=== PATIENT | female | born 1985 | race Two or more races ===

== ENCOUNTER 2025-01-17 10:23 | Emergency (ER) | payer MEDICAID, SELFPAY ==
[2025-01-17 10:24] VITALS: BMI 37.1
[2025-01-17 10:56] VITALS: BP 126/90; PULSE 84; RESP 18; TEMP 37.1; O2SAT 98
--- NOTE | 2025-01-17 11:11 | XR_ITS ---
Examination: CT maxillofacial, with contrast 2-D sagittal and coronal reconstructions. 3-D reconstructions Date and time of exam:January 17, 2025 1458 hours INDICATIONS: Redness swelling and pain in the face left facial droop and numbness beginning 5 days ago CTDI: vol (mGy):34.6 DLP: (mGycm):623 Technique: Multiple axial images maxillofacial region, 3.0 mm slice thickness, post intravenous injection 50 cc Isovue-370 cc Isovue 370. 2-D sagittal coronal reconstructions. 3-D reconstructions Low dose protocols were performed. One or more of the following dose reduction techniques were used; automated exposure control, adjustment of the mA and/or KV according to patient size, use of iterative reconstruction technique. Findings: Soft tissue swelling above the left orbit and anterior to the left orbit No soft tissue abscess The optic globes appear intact Maxillary antra are clear Symmetrical nasopharynx oropharynx Significant carotid triangle and submental lymphadenopathy, the largest right carotid triangle lymph node 16 mm and left carotid triangle lymph node 12 mm Symmetrical parotid glands No facial fracture Multiple maxillary and mandibular dental caries IMPRESSION: Mild soft tissue swelling above the left orbit and anterior to the left orbit The optic globes are intact Significant carotid triangle and submental lymphadenopathy, clinical correlation advised Multiple maxillary and mandibular dental caries
--- NOTE | 2025-01-17 11:13 | EDNOTE_ITS ---
<Statement entered by Rufina Mayorga MD - 01/18/25 07:09> As co-signing physician, I was present and available for consult prn. I concur with the plan and care as documented by the midlevel provider. ED General RME/HPI General Chief complaint: General Adult/Misc Complain Stated complaint: FACIAL SWELLING SINCE THURSDAY, DENIES INJURY Time Seen by Provider: 01/17/25 11:09 Arrival date/time: 01/17/25 10:23 CC: Facial pain and facial swelling HPI ongoing for the past 3 days with progr essive increase in stability pain is particularly sensitive just medial to the right eye lateral to the bridge of the nose, patient denies tearing loss of vision difficulty breathing swelling or pain in the mouth. Patient states she is able to breathe through his nose. Denies any forehead pain or pain behind the eyes localized pain is a 4 on a 10 scale and 10 on 10 scale when pressed upon. Patient denies altered level of consciousness no prior history of similar events patient is sexually not active, last menstrual cycle was 1 month ago. Related Data Previous Rx's ?Medication ?Instructions ?Recorded Sulfamethoxazole/Trimethoprim DS * 1 tab PO BID #14 ta bs 05/09/17 (BACTRIM DS *) acetaminophen 500 mg tablet 500 mg PO Q6HR PRN PAIN #3 0 tabs 05/09/17 (Tylenol Extra Strength) clindamycin HCl 300 mg capsule 300 mg PO TID #21 caps 01/17/25 prednisone 20 mg tablet See Taper PO BID 3 days #6 t abs 01/17/25 Allergies Allergy/AdvReac Type Severity Reaction Status Date / Time NKA* Allergy Uncoded 01/17/25 10:26 Review of Systems Review of Systems Narrative Review of Systems: GEN: No fever, no chills, no weight loss EYES: No discharge, no visual changes, no pain HEENT:+ face pain, No ear pain, no congestion, no sore throat PULM: No shortness of breath, no cough, no congestion CV: No chest pain, no dyspnea on exertion, no palpitations GI: No nausea, no vomiting, no diarrhea, no pain, no constipation : No frequency, no urgency, no dysuria MUSC/SKEL: No joint pain, no back pain SKIN: No rash PSYCH: No hallucinations, no depression HEME/LYMPH: No easy bleeding or bruising tendencies NEURO: No weakness, no headache Past Medical History Social History SMOKING STATUS: Never smoker ED Exam Narrative Physical exam: [General: Obese in moderate discomfort but not in any acute distress Head normocephalic HEENT: Face: Patient has facial edema to the lower lid of the right eye that extends down into the left cheek within acceptable limits. The right side of the face appears normal, there is no erythema open induration, there are no fluctuance or exudate oozing from the nose. There is no fluctuance or oozing from the lacrimal duct. There is no upper eyelid edema or erythema. Eyes: Pupils are PERRLA EOMs are intact mouth pink moist membranes uvula is midline swallow symmetrical phonation is normal Neck is supple nontender, no stridor Chest equal chest rise nontender to palpation Respiratory: Clear to auscultation no wheezes crackles or rubs CV: Rate rhythm is regular no murmurs rubs or clicks Abdomen is distended secondary to body habitus soft nontender no masses positive bowel sounds all 4 quadrants Back: No CVA tenderness no spinous process tenderness from cervical spine thoracic and lumbar spine Skin: Intact no petechiae rash induration ulceration or crepitus Extremities: Moving all extremity against resistance cap refill less than 2 seconds neurosensory intact Neuro: Awake alert oriented x3 Glascow coma 15 no focal deficits] Course Quality Measures none Orders Category Date Time Status CT Screening NOW Care 01/17/25 11:12 Active Saline [Insert IV] NOW Care 01/17/25 11:[address] facial bones w con Stat Exams 01/17/25 11:11 Completed Blood Culture (Lab) Stat Lab 01/17/25 11:52 Received CBC Stat Lab 01/17/25 11:52 Completed CMP [Comprehensive Metabolic Panel] Stat Lab 01/17/25 11:52 Completed Procalcitonin Stat Lab 01/17/25 11:52 Completed Clindamycin 900Mg Ivpb [Cleocin/D5w Ivpb] 900 mg Med 01/17/25 11:11 Discontinued Pre-Mixed [Pre-mixed Bag] 1 bag IV X1 Vital Signs Vital signs: Vital Signs Temperature 98.7 F 01/17/25 10:56 Pulse Rate 84 01/17/25 10:56 Respiratory Rate 18 01/17/25 10:56 Blood Pressure 126/90 H 01/17/25 10:56 Pulse Oximetry (%) 98 01/17/25 10:56 Oxygen Delivery Method Room Air 01/17/25 10:56 Discharge Plan Plan Patient Disposition: HOME (Self Care) Patient condition on transfer: Stable Prescriptions/Referrals Prescriptions/Med Rec: New clindamycin HCl 300 mg capsule 300 mg PO TID Qty: 21 0RF prednisone 20 mg tablet See Taper PO BID 3 Days Qty: 6 0RF Taper: Prednisone Taper 20 mg DAILY for 2 Days and 0 Hour 10 mg DAILY for 2 Days and 0 Hour 5 mg DAILY for 7 Days and 0 Hour No Action acetaminophen [Tylenol Extra Strength] 500 MG tablet 500 mg PO Q6HR PRN (Reason: PAIN) Qty: 30 0RF Sulfamethoxazole/Trimethoprim DS * (BACTRIM DS *) 1 TAB tablet 1 tab PO BID Qty: 14 0RF Referrals: Dmitriy Coelho PA-C [Primary Care Provider] - In 1 week Problem List Clinical Impression: Soft tissue infection Patient/Caregiver Discharge Instructions Additional Instructions: Take the medications as prescribed, follow-up in 3 days if there is any significant worsening or fever return to the emergency room for reevaluation. Print Language: Croatian Stand Alone Forms: [employer] Award Info., Patient Portal Info Letter, Work/School Release MARILEE/CIARA Supervising Physician JENNIFER Supervising Physician: Matt Chopra ENP [facility] Clinical Information Provided by patient Medical Records Reviewed [facility] Meds/Rx Considered, not Ordered None Labs/Rad/Tests considered, not Ordered None Lab Interpretation Lab(s) interpretation(s): CBC shows 12,900 WBCs no anemia thrombocytopenia CMP shows no significant electrolyte imbalances or renal impairment transaminitis or T. bili elevation Procalcitonin 0.09. Imaging Provider imaging interpretation(s): CT of the face with IV contrast shows soft tissue edema no indurated or abscessed areas no periorbital edema cellulitis. Medication Administration(s) Medication Administration History Discontinued Medications Clindamycin Phosphate 900 mg/ (IV Miscellaneous Supplies) 50 mls @ 50 mls/hr IV X1 ONE Stop: 01/17/25 12:10 Diagnosis Differential diagnosis: Will discharge the patient home on antibiotics and steroids differential di Dispositon Disposition: Discharge Home
[2025-01-17 12:26] LABS: Basophils # (Auto) 0.1 Thou/mm3 (0.0-0.2); Basophils % (Auto) 1 % (0-2.5); Eosinophils # (Auto) 0.1 Thou/mm3 (0.0-0.5); Eosinophils % (Auto) 1 % (0-10); Hematocrit 44.5 % (36.0-46.0); Hemoglobin 14.7 g/dL (12.0-16.0); Immature Granulocytes Auto 0.04 Thou/mm3 (0.00-0.00); Lymphocytes # (Auto) 3.1 Thou/mm3 (1.0-4.8); Lymphocytes % (Auto) 24 % (10-50); Mean Corpuscular HGB Conc 33.0 g/dl (31.0-37.0); Mean Corpuscular Hemoglobin 32.1 pg (25.0-35.0); Mean Corpuscular Volume 97 fL (80-100); Monocytes # (Auto) 0.9 Thou/mm3 (0.0-0.8); Monocytes % (Auto) 7 % (0-12); Neutrophils # (Auto) 8.6 Thou/mm3 (1.8-7.7); Neutrophils % (Auto) 67 % (37-80); Nucleated Red Blood Cell # 0.00 Thou/mm3 (0.00-0.00); Nucleated Red Blood Cell % 0 /100 WBC (0); Platelet Count 306 Thou/mm3 (140-440); RDW Standard Deviation 46.2 fL (36.4-46.3); Red Blood Count 4.58 Miln/mm3 (4.00-5.20); White Blood Count 12.9 Thou/mm3 (3.6-11.0)
[2025-01-17 13:01] LABS: Alanine Aminotransferase 23 U/L (10-49); Albumin, Serum 4.6 gm/dL (3.5-5.0); Albumin/Globulin Ratio 1.5 (1.2-2.2); Alkaline Phosphatase 88 U/L (46-116); Anion Gap 10 (7-16); Aspartate Amino Transferase 20 U/L (0-34); BUN/Creatinine Ratio 10 Ratio (12-20); Bilirubin,Total 0.8 mg/dL (0.3-1.2); Blood Urea Nitrogen 8 mg/dL (9-23); Calcium 9.2 mg/dL (8.3-10.6); Calcium (Corrected) 9.2 mg/dL (8.5-10.1); Carbon Dioxide 27.0 mMol/L (20.0-31.0); Chloride 103 mMol/L (98-107); Creatinine (Component) 0.8 mg/dL (0.6-1.3); Estimated Creatinine Clearance 117.5 mL/min (>60); Globulin 3.1 gm/dL (2.3-3.5); Glucose 99 mg/dL (74-106); Osmolality,Calculated 277 (275-295); Potassium 4.3 mMol/L (3.4-5.1); Procalcitonin 0.09 ng/ml (0.0-0.49); Sodium 140 mMol/L (136-145); Total Protein 7.7 gm/dL (5.7-8.2); eGFR > 60 See Note
[2025-01-17] MEDS: CLINDAMYCIN 900MG IVPB 900 MG in PRE-MIXED 1 BAG 50 MG IV (16:37)
== END 2025-01-17 18:01 | disposition home or self-care (01) ==
PROVIDERS: Registered Nurse General Practice; Emergency Provider Emergency Medicine; PCP Physician Assistant
DX: L08.9 Local infection of the skin and subcutaneous tissue, unspecified (principal)
CPT/HCPCS: 36415; 70487; 80053; 84145; 85025; 87040; 96365; 99283; A4649; Q9967; S0077; J0736